=== PATIENT | female | born 2005 | race African-American/Black ===

== ENCOUNTER 2024-10-19 20:48 | Emergency (ER) | payer MEDICAID, OTHER ==
[~2024-10-19] VITALS: Ht 165.1 cm; Wt 105.0 kg
[2024-10-19 20:55] VITALS: BP 138/70; PULSE 95; RESP 16; TEMP 36.7; O2SAT 96
[2024-10-19] MEDS: LIDOCAINE HCL/PF 1% 10 MG/ML 5ML VIAL INFIL ONE (22:15)
[2024-10-19] MEDS: BACITRACIN ZINC OINT UDPKT TOP ONE (22:15)
[2024-10-19] MEDS: KETOROLAC 15MG/ML VIAL IM ONE (22:52)
[2024-10-19] MEDS: TETANUS, DIPHTHERIA, PERTUSSIS VAC/PF 0.5ML (>10YR OLD) IM ONE (22:53)
[2024-10-20] MEDS ORDERED: LIDO-53 TP (00:37)
[2024-10-20] MEDS ORDERED: NAPR-1176 MT (00:37)
== END 2024-10-20 01:12 | disposition home or self-care (01) ==
LOC: ER 21:06
DX: S81.012A Laceration without foreign body, left knee, initial encounter (principal); Z79.1 Long term (current) use of non-steroidal anti-inflammatories (NSAID); Z79.899 Other long term (current) drug therapy; V89.2XXA Person injured in unspecified motor-vehicle accident, traffic, initial encounter; Y93.89 Activity, other specified; Y92.89 Other specified places as the place of occurrence of the external cause; Y99.8 Other external cause status
CPT/HCPCS: 73562; 90715; 12005; 90471; 96372; 99284; J1885; Z7610